=== PATIENT | female | born 1995 | race Caucasian/White ===

== ENCOUNTER 2018-01-03 17:57 | Emergency (ER) | payer BC ==
[2018-01-03 18:25] LABS: #Basophils 0.1 thou/uL (0.0-0.2); #Eosinphils 0.1 thou/uL (0.0-0.7); #Lymphocytes 2.5 thou/uL (1.20-3.40); #Monocytes 0.6 thou/uL (0.11-0.59); #Neutrophils 7.5 thou/uL (1.40-6.50); %Basophils 0.5 % (0.0-1.0); %Lymphocytes 22.8 % (28.0-48.0); %Monocytes 5.6 % (0.0-4.0); %Neutrophils 70.1 % (31.0-61.0); Hemoglobin 13.4 g/dL (12.0-16.0); Mean Corpuscular HGB CONC 34.5 g/dL (32.0-36.0); Mean Corpuscular Hemoglobin 30.6 pg (25.0-35.0); Mean Corpuscular Volume 88.6 fl (77.0-87.0); Mean Platelet Volume 7.2 fL (7.4-10.4); Platelet Count 324 thou/uL (130-400); Red Blood Cell (RBC) Count 4.39 mill/uL (4.00-5.20); White Blood Cell (WBC) Count 10.7 thou/uL (4.8-10.8)
[2018-01-03 18:32] LABS: Bilirubin Negative (Negative); Blood, Urine Negative (Negative); Clarity CLOUDY (Clear); Glucose, Urine (Dipstick) Negative (Negative); Leukocyte Negative (Negative); Nitrite Negative (Negative); Protein, Urine (Dipstick) Negative (Neg-Trace); Specific Gravity, Urine 1.018 (1.002-1.036); Urobilinogen 0.2 mg/dL (0.2-1.0); pH, Urine 7.5 (5.0-9.0)
[2018-01-03 18:45] LABS: ALT (SGPT) 30 U/L (8-55); AST (SGOT) 20 U/L (5-34); Alkaline Phosphatase 67 U/L (40-150); Anion Gap 14 mmol/L (10-20); BUN (Urea Nitrogen) 7 mg/dL (7.0-18.7); Bilirubin, Total 0.4 mg/dL (0.2-1.2); Calc. Creatinine Clearance 0 mL/min (70-130); Calcium 10.1 mg/dL (7.8-10.44); Carbon Dioxide 25 mmol/L (22-29); Chloride 103 mmol/L (98-107); Estimated GFR-MDRD Greater than 90; Globulin 2.9 g/dL (2.4-3.5); Glucose 93 mg/dL (70-105); Potassium 3.8 mmol/L (3.5-5.1); Protein, Total 7.9 g/dL (6.0-8.3); Sodium 138 mmol/L (136-145)
[2018-01-03] MEDS ORDERED: Metoclopramide HCl 10 MG/2 ML VIAL ONE (18:58)
[2018-01-03] MEDS ORDERED: diphenhydrAMINE 50 MG/ML VIAL ONE (18:58)
== END 2018-01-03 21:19 | disposition home or self-care (01) ==
LOC: ERS 17:57
DX: O21.0 Mild hyperemesis gravidarum (principal); O99.341 Other mental disorders complicating pregnancy, first trimester; F32.9 Major depressive disorder, single episode, unspecified; Z3A.08 8 weeks gestation of pregnancy
CPT/HCPCS: 36415; 80053; 81003; 84702; 85025; 96361; 96365; 96375; J1200; J2765

== ENCOUNTER 2018-06-14 20:06 | Day surgery (SDC) | payer BC ==
[2018-06-14 20:47] VITALS: BP 113/70; TEMP 98.5; BMI 26.9
--- NOTE | 2018-06-14 22:16 | PDOC.LDHP ---
Labor and Delivery H&P Chief complaint: decreased movement HPI: EGA at 30 weeks 4 days 22 yo G1 EDU 08/19 with decreased FM, no VB, no LOF. HX sinus infection on ABX ( amoxicillin). Since arrival, now feels FM. Review of Systems: positive for sinus infection, some cough at night Current gestational age (weeks): 30 (4 days) Due date: 08/19/18 Dating criteria: last menstrual period Grav: 1 Para: 0 Current complications: none Abnormal US findings: No Current medications: pre- vitamins Previous surgical history: none Allergies/Adverse Reactions: Allergies Allergy/AdvReac Type Severity Reaction Status Date / Time No Known Drug Allergies Allergy Verified 06/14/18 20:38 - Physical Exam Vital signs reviewed and normal: yes Heart: RRR Lungs: CTAB Abdomen: gravid Extremeties: no edema FHT: category 1 [place] contractions every: no contractions - Assessment Decreased FM at 30 weeks 4 days with a reactive FHRT - Plan Plan: observation in L&D (Kick counts discussed; continue ABX as ordered for sinus; FHTs reviewed with her)
--- NOTE | 2018-06-14 22:23 | PDOC.EVN ---
Event Note - Event Note Event Note: transabdominal "rock" with accel response. reassurance give.
== END 2018-06-14 22:35 | disposition home or self-care (01) ==
LOC: L&D/OP 20:06
PROVIDERS: ATTEND Student in an Organized Health Care Education/Training Program
DX: O36.8130 Decreased fetal movements, third trimester, not applicable or unspecified (principal); O99.513 Diseases of the respiratory system complicating pregnancy, third trimester; J32.9 Chronic sinusitis, unspecified; Z3A.30 30 weeks gestation of pregnancy; Z79.2 Long term (current) use of antibiotics; Z79.899 Other long term (current) drug therapy
CPT/HCPCS: 59025; 99282

== ENCOUNTER 2018-07-20 11:55 | Day surgery (SDC) | payer BC ==
[2018-07-20 12:27] VITALS: BMI 27.8
[2018-07-20 13:42] LABS: #Eosinphils 0.1 thou/uL (0.0-0.7); #Lymphocytes 1.4 thou/uL (1.20-3.40); #Monocytes 0.7 thou/uL (0.11-0.59); #Neutrophils 8.5 thou/uL (1.40-6.50); %Basophils 0.4 % (0.0-1.0); %Eosinophils 0.6 % (0.0-10.0); %Lymphocytes 13.3 % (28.0-48.0); %Monocytes 6.4 % (0.0-4.0); %Neutrophils 79.3 % (31.0-61.0); Hemoglobin 10.5 g/dL (12.0-16.0); Mean Corpuscular HGB CONC 34.8 g/dL (32.0-36.0); Mean Corpuscular Hemoglobin 29.5 pg (25.0-35.0); Mean Corpuscular Volume 84.7 fL (78.0-98.0); Mean Platelet Volume 7.7 fL (7.4-10.4); Platelet Count 313 thou/uL (130-400); RBC Distribution Width 12.6 % (11.5-14.5); Red Blood Cell (RBC) Count 3.55 mill/uL (4.00-5.20); White Blood Cell (WBC) Count 10.7 thou/uL (4.8-10.8)
[2018-07-20 14:06] LABS: ALT (SGPT) 24 U/L (8-55); AST (SGOT) 25 U/L (5-34); Albumin 3.6 g/dL (3.5-5.0); Alkaline Phosphatase 328 U/L (40-150); Anion Gap 15 mmol/L (10-20); BUN (Urea Nitrogen) 9 mg/dL (7.0-18.7); Bilirubin, Total 0.2 mg/dL (0.2-1.2); Calc. Creatinine Clearance 160 mL/min (70-130); Calcium 9.1 mg/dL (7.8-10.44); Carbon Dioxide 21 mmol/L (22-29); Chloride 107 mmol/L (98-107); Estimated GFR-MDRD Greater than 90; Globulin 3.1 g/dL (2.4-3.5); Glucose 79 mg/dL (70-105); Magnesium 2.1 mg/dL (1.7-2.2); Potassium 4.6 mmol/L (3.5-5.1); Protein, Total 6.7 g/dL (6.0-8.3); Sodium 138 mmol/L (136-145)
[2018-07-20 15:10] LABS: Bilirubin Negative (Negative); Blood, Urine Negative (Negative); Clarity CLEAR (Clear); Glucose, Urine (Dipstick) Negative (Negative); Leukocyte Negative (Negative); Nitrite Negative (Negative); Protein, Urine (Dipstick) Negative (Neg-Trace); Specific Gravity, Urine 1.011 (1.002-1.036); Urobilinogen 0.2 mg/dL (0.2-1.0)
[2018-07-20 15:11] LABS: Bacteria/HPF None Seen HPF (None Seen); Hyaline Casts/LPF 0-3 HYALINE CAST LPF (0-3 Hyaline); Pathc Cast-AUWi Flag 0.43 (0-2.49); RBC/HPF 0-3 HPF (0-3); Squamous Epithelial None Seen HPF (0-3); WBC/HPF 0-3 HPF (0-3)
--- NOTE | 2018-07-20 15:19 | HP ---
DATE: 07/20/2018 TIME OF EVALUATION: 1440 until 1454. LOCATION: Labor and Delivery triage in room #7. This is a patient of Dr. Vasquez. CHIEF COMPLAINT: The patient is here for diarrhea for 3 days (loose stool, but not watery). HISTORY OF PRESENT ILLNESS: In brief, this is a 22-year-old female 1, para 0 at 35 -36 weeks with complaint of loose stools for the last 3 days or so. She denies any fevers, blood in the stool, contractions, vaginal bleeding or leakage of fluid. She has good movement. She den ies any sick contacts. She denies any altered diet or strange p.o. intake. She does not have any ab dominal cramps. She states that she was recently checked in the office and she was called [address] Zechariah Vasquez. PAST MEDICAL HISTORY: Noncontributory. PAST SURGICAL HISTORY: None. OB HISTORY: She is a G1, P0. MEDICATIONS: include Diclegis for nausea and her vitamin. SOCIAL HISTORY: Negative for alcohol, tobacco and drug use. PHYSICAL EXAMINATION: VITAL SIGNS: She is afebrile and normotensive. Blood pressures were in the teens over 70s. Clinica lly, she is in no acute distress and she is resting comfortably. ABDOMEN: Soft and nontender and size consistent with dates. On perineal inspection, there is no ruchi dence of vaginal bleeding or ruptured membranes. I performed a cervical examination at the patient's request and found that she was only 1 cm internal os dilation, effacement about 25%, station -2. Sh e is cephalic and there is no evidence of vaginal bleeding or leakage of fluid. On external monitors, heart tones are in the 130s-140s with moderate reactivity. There are no contractions, but there is some uterine irritability on tocodynamometer. Interventions ordered, a CB C and a CMP have been ordered which are both normal. A UA was ordered by Dr. Vasquez and that is dona belcher (clean catch). (She has IV fluids going which was LR and D5 LR for about 2-liter bolus). ASSESSMENT: This is a G1, P0 at 35 weeks with probable gastroenteritis, nonsevere. There is no evid ence of blood in the stool and clinically, she does not appear ill. She is afebrile and can tolerate p.o. PLAN: 1. I discussed these findings with the patient and her mother. 2. No evidence of labor. 3. Although Dr. Vasquez had called her 2 cm, my exam is 1 cm, which may be simple in to observe her variability (not a large discrepancy). 4. I will likely send the patient home after her UA returns. 5. The patient also has a handwritten H&P in the physical chart.
--- NOTE | 2018-07-20 15:44 | PDOC.EVN ---
Event Note - Event Note Event Note: UA clean...ok for outpatient care
== END 2018-07-20 16:11 | disposition home or self-care (01) ==
LOC: L&D/OP 11:55
PROVIDERS: ATTEND Student in an Organized Health Care Education/Training Program
DX: O99.89 Other specified diseases and conditions complicating pregnancy, childbirth and the puerperium (principal); R19.7 Diarrhea, unspecified; Z3A.35 35 weeks gestation of pregnancy; Z79.899 Other long term (current) drug therapy
CPT/HCPCS: 80053; 81001; 83735; 85025; 96360; 96361; 99284

== ENCOUNTER 2018-07-22 16:18 | Day surgery (SDC) | payer BC ==
[2018-07-22 17:00] VITALS: BMI 27.8
[2018-07-22 17:24] VITALS: BP 114/69; TEMP 98.6
[2018-07-22 17:29] LABS: Amnisure Test No Membranes Rupture (No Rupture)
[2018-07-22 17:30] LABS: Amnisure Internal Control QC ACCEPTABLE (ACCEPTABLE)
--- NOTE | 2018-07-23 06:29 | SS ---
DATE OF ADMISSION: 07/22/2018 DATE OF DISCHARGE: 07/22/2018 LABOR AND DELIVERY TRIAGE NOTE REGULAR PHYSICIAN: Alyssa Vasquez MD EVALUATING PHYSICIAN: Florentino Lala MD CHIEF COMPLAINT: Leakage of fluid at home. HISTORY OF PRESENT ILLNESS: Ms. Grier is a 23-year-old white G1, P0 with an estimated date of confinement of 08/19/2018, who presents complaining of 1 episode of suspected leakage of fluid today at home at approximately 2:00 p.m. Since that time, she states that she has had no further leakage. She denies vaginal bleeding or decreased movement. Her care has been with Dr. Vasquez and it has been reportedly uncomplicated. PAST MEDICAL HISTORY: None. PAST SURGICAL HISTORY: None. CURRENT MEDICATIONS: vitamins and Diclegis on a p.r.n. basis. ALLERGIES: NO KNOWN ALLERGIES. SOCIAL HISTORY: Denies tobacco, alcohol, or drug use. FAMILY HISTORY: Unremarkable. REVIEW OF SYSTEMS: Denies nausea, vomiting, fever, chills, vaginal bleeding, or contractions. PHYSICAL EXAMINATION: VITAL SIGNS: Stable. She is afebrile in triage. ABDOMEN: Soft, nontender, and gravid. AmniSure returns without evidence of membrane rupture. PELVIC: Shows the cervix to be 1 cm posterior with the vertex presenting. heart rate tracing is stable and reassuring. No decelerations were seen. No regular uterine contractions were seen. ASSESSMENT: 1. 36-week intrauterine . 2. No evidence of ruptured membranes. PLAN: The patient will be discharged to home. She was given complete labor precautions and voiced understanding of these. She states that she has an appointment with Dr. Vasquez on . Job ID: [id number]
== END 2018-07-22 18:28 | disposition home or self-care (01) ==
LOC: L&D/OP 16:18
PROVIDERS: ATTEND Student in an Organized Health Care Education/Training Program
DX: Z03.71 Encounter for suspected problem with amniotic cavity and membrane ruled out (principal)
CPT/HCPCS: 84112; 99283

== ENCOUNTER 2018-08-13 22:00 | Inpatient (IN) | payer BC ==
[2018-08-13] MEDS: Lactated Ringer's 1,000 ML IV SCH (23:30)
[2018-08-13 23:37] VITALS: BMI 28.3
[2018-08-13] MEDS ORDERED: Lidocaine 1% (PF) 30 ML VIAL SC PRN (23:59)
[2018-08-13] MEDS ORDERED: Acetaminophen 500 MG TAB PO PRN (23:59)
[2018-08-13] MEDS ORDERED: Diphenoxylate HCl/Atropine Tablet PO PRN (23:59)
[2018-08-13] MEDS ORDERED: NS / Oxytocin 40 units/1000ml 1,000 ML IV PRN (23:59)
[2018-08-13] MEDS ORDERED: Zolpidem Tartrate 5 MG TAB PO PRN (23:59)
[2018-08-13] MEDS ORDERED: Carboprost 250 MCG/ML AMP IM PRN (23:59)
[2018-08-13] MEDS ORDERED: Butorphanol Tartrate 1 MG/ML VIAL SLOW IVP PRN (23:59)
[2018-08-13] MEDS ORDERED: Ibuprofen 800 MG TAB PO PRN (23:59)
[2018-08-13] MEDS ORDERED: NS w/ Oxytocin 10 units 500 ML IV SCH (23:59)
[2018-08-13] MEDS ORDERED: Misoprostol 200 MCG TAB PR PRN (23:59)
[2018-08-13] MEDS ORDERED: Methylergonovine 0.2 MG/ML VIAL IM PRN (23:59)
[2018-08-13] MEDS ORDERED: Promethazine HCl 25 MG/ML VIAL IM PRN (23:59)
[2018-08-13] MEDS ORDERED: Ondansetron PF 4 MG/2 ML Vial IVP PRN (23:59)
[2018-08-13] MEDS ORDERED: HYDROcodone/Acetaminophen 5/325 mg Tablet PO PRN (23:59)
[2018-08-14 00:23] LABS: Hemoglobin 10.6 g/dL (12.0-16.0); Mean Corpuscular HGB CONC 33.1 g/dL (32.0-36.0); Mean Corpuscular Hemoglobin 27.4 pg (27.0-31.0); Mean Corpuscular Volume 82.6 fL (78.0-98.0); Mean Platelet Volume 8.3 fL (7.4-10.4); Platelet Count 289 thou/uL (130-400); RBC Distribution Width 13.4 % (11.5-14.5); Red Blood Cell (RBC) Count 3.87 mill/uL (4.20-5.40); White Blood Cell (WBC) Count 11.4 thou/uL (4.8-10.8)
[2018-08-14 00:55] LABS: HBSAg Index 0.33 S/CO (0-0.99); Hep B Surf Ag Non-Reactive S/CO (NonReactive); Syphilis Antibody Nonreactive (Nonreactive); Syphilis Antibody Index 0.05 S/CO (<1.00 Non-Reactive)
[2018-08-14] MEDS: Misoprostol 100 MCG TAB VAG SCH ×2 (01:00→05:03)
[2018-08-14] MEDS: Lactated Ringer's 1,000 ML IV SCH ×3 (05:08→11:09)
--- NOTE | 2018-08-14 08:10 | PDOC.LDHP ---
Labor and Delivery H&P Chief complaint: scheduled induction HPI: 23yo at 39w2d by LMP for elective IOL, s/p cytotec 2 doses overnight, some mildly painful contractions. No VB LOF. Current gestational age (weeks): 39 Due date: 08/19/18 Dating criteria: last menstrual period Grav: 1 Para: 0 Current complications: other (mild anemia) Abnormal US findings: No Past Medical History: SMA carrier, FOB negative carrier Current medications: pre-luis vitamins, iron Previous surgical history: none Allergies/Adverse Reactions: Allergies Allergy/AdvReac Type Severity Reaction Status Date / Time No Known Drug Allergies Allergy Verified 08/13/18 23:38 Social history: drug use (THC use throughout , all drug screens are positive up until this admit.) - Physical Exam Vital signs reviewed and normal: yes General: NAD Heart: RRR Lungs: CTAB Abdomen: gravid Extremeties: no edema FHT: category 1 [place] contractions every: 4-6min - Vaginal Exam cm dilated: 4 Effacement: 50% Station: -1 - OB Labs Blood type: O RH: positive Antibody Screen: negative HIV: negative RPR: negative HEPSAg: negative 1 hour GCT: negative GBS: negative Urine drug screen: negative Rubella: immune - Assessment L&D Assessment: elective induction at term - Plan Plan: admit to L&D, labor augmentation if indicated, informed consent obtained, anesthesia consult for pain management
[2018-08-14] MEDS ORDERED: Fentanyl 4 mcg/Bup 0.1% Cadd 100 ML ONE (09:03)
[2018-08-14] MEDS ORDERED: Lidocaine 1.5%/Epinephrine 1:200,000 5 ML AMPUL IJ ONE (09:40)
[2018-08-14] MEDS ORDERED: Fentanyl 4 mcg/Bupivacaine 0.1% Cassette 100 ML EPIDURAL SCH (10:15)
[2018-08-14] MEDS ORDERED: Lactated Ringer's 500 ML IV PRN (10:15)
[2018-08-14] MEDS ORDERED: diphenhydrAMINE 50 MG/ML VIAL IVP PRN (10:15)
[2018-08-14] MEDS ORDERED: Acetaminophen 325 MG TAB PO PRN (10:15)
[2018-08-14] MEDS ORDERED: Communication Order-Pharmacy FS SCH (10:15)
[2018-08-14] MEDS ORDERED: Promethazine HCl 25 MG/ML VIAL IM PRN (10:15)
[2018-08-14] MEDS ORDERED: Eucerin (Mineral Oil/Petrolatum,White) 30 gm Jar TOP PRN (10:15)
[2018-08-14] MEDS ORDERED: Ondansetron PF 4 MG/2 ML Vial IVP PRN ×2 (10:15→20:01)
[2018-08-14] MEDS ORDERED: Naloxone HCl 0.4 mg/ml Vial IVP PRN ×2 (10:15)
[2018-08-14] MEDS ORDERED: ePHEDrine/0.9% NaCl/PF SYRINGE 50 mg/10 ml SLOW IVP PRN (10:15)
--- NOTE | 2018-08-14 13:22 | PDOC.LDPN ---
Labor & Delivery Progress Note - Subjective Subjective: comfortable - Objective Vital signs reviewed and normal: yes General: NAD Uterine fundus: non tender Dilation: 7 Effacement: 90% Station: 0 FHT: category 1, early decelerations [place] contractions every: q2min Plan: continue plan of care
--- NOTE | 2018-08-14 17:01 | PDOC.OPDEL ---
OB Operative/Delivery Note Delivery Dr/Surgeon: Pedro Assist: n/a Pre-Delivery Diagnosis: elective induction Procedure/Post Delivery Dx: spontaneous vaginal delivery Weeks gestation: 39 Anesthesia: epidural - Findings A Sex: male - 1 min: 8 - 5 min: 9 - Additional Findings/Plan Placenta delivered: spontaneous Repaired Obstetrical Laceration: none Estimated blood loss: 100cc qbl pending Compilations/Other Findings: NC x 1 loose, delivered through, terminal mec, no dystocia Post delivery plan: routine recovery
[2018-08-14] MEDS ORDERED: NS / Oxytocin 40 units/1000ml 1,000 ML ONE (18:57)
[2018-08-14] MEDS ORDERED: Preparation H Ointment 28 GM TUBE PR PRN (20:01)
[2018-08-14] MEDS ORDERED: Benzocaine/Menthol 20-0.5% 60 ML CAN TOP PRN (20:01)
[2018-08-14] MEDS ORDERED: Bisacodyl 10 MG SUPP PR PRN (20:01)
[2018-08-14] MEDS ORDERED: Milk Of Magnesia 30 ML UDCUP PO PRN (20:01)
[2018-08-14] MEDS ORDERED: Lanolin Ointment 7 GM TUBE TOP PRN (20:01)
[2018-08-14] MEDS ORDERED: Adacel (T-DAP) 0.5 ML SYRINGE IM ONE (20:01)
[2018-08-14] MEDS ORDERED: diphenhydrAMINE 25 MG CAP PO PRN (20:01)
[2018-08-14] MEDS ORDERED: HYDROcodone/Acetaminophen 5/325 mg Tablet PO PRN (20:01)
[2018-08-14] MEDS ORDERED: NS / Oxytocin 40 units/1000ml 1,000 ML IV SCH (20:01)
[2018-08-14] MEDS: Docusate Calcium (SURFAK) 240 MG CAP PO SCH (22:23)
[2018-08-15] MEDS: HYDROcodone/Acetaminophen 5/325 mg Tablet PO PRN ×4 (00:34→21:12)
[2018-08-15] MEDS: Ibuprofen 800 MG TAB PO SCH ×4 (02:00→21:13)
[2018-08-15] MEDS: Ferrous Sulfate 325 MG TAB PO SCH ×2 (07:49→16:30)
[2018-08-15] MEDS: Misoprostol 100 MCG TAB VAG SCH (07:50)
--- NOTE | 2018-08-15 07:56 | PDOC.PP ---
Post Progress Note Post Day #: 1 PO intake tolerated: yes Flatus: yes Ambulation: yes Vital Signs (12 hours) Temp Pulse Resp BP BP Pulse Ox 08/15/18 03:53 97.8 F 100 20 118/74 08/15/18 00:15 98.0 F 77 18 137/76 08/14/18 21:25 98.4 F 86 18 143/74 H 97 Weight Weight 150 lb - Physical Examination General: NAD Cardiovascular: RRR Respiratory: non-labored breathing Abdominal: no distention, appropriately TTP Fundus firm & at: umb-2 Skin: no rash Neurological: no gross focal deficits Psychiatric: normal affect Result Diagrams: 08/13/18 23:50 Additional Labs: Post Labs Blood Type O POSITIVE 08/13/18 23:50 Hep Bs Antigen Non-Reactive S/CO (NonReactive) 08/13/18 23:50 - Assessment/Plan PPD1 s/p TSVD VSSAF Doing well, lochia < menses Bottlefeeding Rh pos Rimm Cont PP care, home tomorrow.
[2018-08-15] MEDS: Docusate Calcium (SURFAK) 240 MG CAP PO SCH ×2 (09:05→21:13)
[2018-08-15] MEDS: Prenatal Vitamin 1 TAB PO SCH (09:05)
[2018-08-15] MEDS ORDERED: Lidocaine 2% MPF 10 ML AMP (For Epidural Use) ONE (11:11)
[2018-08-15] MEDS ORDERED: Ondansetron ODT 4 MG TAB PO PRN (14:50)
[2018-08-16] MEDS: HYDROcodone/Acetaminophen 5/325 mg Tablet PO PRN ×2 (01:35→08:34)
--- NOTE | 2018-08-16 05:15 | PDOC.PP ---
Post Progress Note Post Day #: 2 Subjective: Doing well, she is OK with dsc today. No new concerns raised PO intake tolerated: yes Flatus: yes Ambulation: yes Vital Signs (12 hours) Temp Pulse Resp BP Pulse Ox 08/15/18 20:22 98.1 F 80 16 119/72 97 Weight Weight 150 lb Vitals reviewed for last 24 hours - Physical Examination General: NAD Cardiovascular: no m/r/g Respiratory: clear to auscultation bilaterally Abdominal: + bowel sounds Extremities: negative homans (B) Neurological: no gross focal deficits Psychiatric: A&Ox3, normal affect Result Diagrams: 08/13/18 23:50 Additional Labs: Post Labs Blood Type O POSITIVE 08/13/18 23:50 Hep Bs Antigen Non-Reactive S/CO (NonReactive) 08/13/18 23:50 (1) Vaginal delivery Code(s): O80 - ENCOUNTER FOR FULL-TERM UNCOMPLICATED DELIVERY Status: Acute - Assessment/Plan PPD2, doing well. Vitals reviewed. Vitals reviewed, one BP of 143/74 noted on but other BPs are wnl. OK for dsch today. OB Summary completed in paper chart Final DX: vaginal Delivery; routine PP care, primigravida
[2018-08-16] MEDS: Ibuprofen 800 MG TAB PO SCH (06:35)
[2018-08-16] MEDS: Ferrous Sulfate 325 MG TAB PO SCH (08:11)
[2018-08-16] MEDS: Prenatal Vitamin 1 TAB PO SCH (08:33)
[2018-08-16] MEDS: Docusate Calcium (SURFAK) 240 MG CAP PO SCH (08:33)
[2018-08-16 09:35] VITALS: BP 112/55; TEMP 97.8
== END 2018-08-16 12:35 | disposition home or self-care (01) | DRG 807 ==
LOC: L&D 22:58 → 3SW 08-14 21:27
PROVIDERS: ADMIT Student in an Organized Health Care Education/Training Program; ATTEND Student in an Organized Health Care Education/Training Program
PROC: 10E0XZZ Delivery of Products of Conception, External Approach (ICD-10-PCS; principal; 2018-08-14)
PROC: 10907ZC Drainage of Amniotic Fluid, Therapeutic from Products of Conception, Via Natural or Artificial Opening (ICD-10-PCS; 2018-08-14)
DX: O99.02 Anemia complicating childbirth (principal); Z37.0 Single live birth; Z3A.39 39 weeks gestation of pregnancy; Z79.899 Other long term (current) drug therapy; O69.81X0 Labor and delivery complicated by cord around neck, without compression, not applicable or unspecified; O76 Abnormality in fetal heart rate and rhythm complicating labor and delivery
CPT/HCPCS: 51702; 85027; 86780; 86850; 86900; 86901; 87340; 90715; J2001; J3490; Q0162

== ENCOUNTER 2018-09-06 23:08 | Emergency (ER) | payer BC ==
[2018-09-07 00:13] LABS: #Eosinphils 0.1 thou/uL (0.0-0.7); #Lymphocytes 1.9 thou/uL (1.20-3.40); #Monocytes 0.6 thou/uL (0.11-0.59); #Neutrophils 8.7 thou/uL (1.40-6.50); %Basophils 0.3 % (0.0-1.0); %Eosinophils 0.7 % (0.0-10.0); %Lymphocytes 17.1 % (21.0-51.0); %Monocytes 5.6 % (0.0-10.0); %Neutrophils 76.4 % (42.0-75.0); Hemoglobin 11.8 g/dL (12.0-16.0); Mean Corpuscular HGB CONC 32.8 g/dL (32.0-36.0); Mean Corpuscular Hemoglobin 26.7 pg (27.0-31.0); Mean Corpuscular Volume 81.5 fL (78.0-98.0); Mean Platelet Volume 7.1 fL (7.4-10.4); Platelet Count 402 thou/uL (130-400); RBC Distribution Width 13.7 % (11.5-14.5); White Blood Cell (WBC) Count 11.3 thou/uL (4.8-10.8)
[2018-09-07 00:36] LABS: ALT (SGPT) 29 U/L (8-55); AST (SGOT) 22 U/L (5-34); Albumin 4.6 g/dL (3.5-5.0); Alkaline Phosphatase 145 U/L (40-150); Anion Gap 18 mmol/L (10-20); BUN (Urea Nitrogen) 13 mg/dL (7.0-18.7); Bilirubin, Total 0.3 mg/dL (0.2-1.2); Calc. Creatinine Clearance 0 mL/min (70-130); Calcium 9.6 mg/dL (7.8-10.44); Carbon Dioxide 22 mmol/L (22-29); Chloride 105 mmol/L (98-107); Estimated GFR-MDRD Greater than 90; Globulin 2.9 g/dL (2.4-3.5); Glucose 114 mg/dL (70-105); Lipase 18 U/L (8-78); Potassium 3.5 mmol/L (3.5-5.1); Protein, Total 7.5 g/dL (6.0-8.3); Sodium 141 mmol/L (136-145)
[2018-09-07 03:34] LABS: Bilirubin Negative (Negative); Blood, Urine Negative (Negative); Clarity CLEAR (Clear); Glucose, Urine (Dipstick) Negative (Negative); Leukocyte Negative (Negative); Nitrite Negative (Negative); Protein, Urine (Dipstick) Negative (Neg-Trace); Specific Gravity, Urine 1.021 (1.002-1.036); Urobilinogen 0.2 mg/dL (0.2-1.0)
--- NOTE | 2018-09-07 16:47 | ULT ---
PRELIMINARY REPORT/[facility]/EMERGENTY AFTER-HOURS PROCEDURE US Abdomen Limited, Right Upper Quadrant EXAM DATE/TIME: 09/07/2018 2:41 AM CLINICAL HISTORY: 23 years old, female; Pain; Other: Ml to ruq pain TECHNIQUE: Real-time ultrasound of the abdomen with image documentation. Examination was focused on the right up per quadrant. COMPARISON: No relevant prior studies available. FINDINGS: Liver: Normal. No masses. Gallbladder: Cholelithiasis. Contracted gallbladder. Common bile duct: Normal. No stones. No dilation. Pancreas: Visualized pancreas is unremarkable. Right kidney: Normal. No mass. No hydronephrosis. IMPRESSION: Cholelithiasis. Contracted gallbladder. No cholecystitis. Thank you for allowing us to participate in the care of your patient. Dictated and Authenticated by: Randy Ariza MD 09/07/2018 3:23 AM Central Time ([place] & [place]) FINAL REPORT RIGHT UPPER QUADRANT ULTRASOUND: Cholelithiasis and a contracted gallbladder is noted. I am in agreement with the preliminary report. POS: HARMONY
== END 2018-09-07 03:46 | disposition home or self-care (01) ==
LOC: ERS 23:08
DX: O99.63 Diseases of the digestive system complicating the puerperium (principal); K80.20 Calculus of gallbladder without cholecystitis without obstruction; O99.345 Other mental disorders complicating the puerperium; F53.0 Postpartum depression
CPT/HCPCS: 36415; 76705; 80053; 81003; 83690; 85025; 93005

== ENCOUNTER 2018-09-10 10:46 | Outpatient (CLI) | payer BC ==
[2018-09-10 12:19] LABS: #Basophils 0.1 thou/uL (0.0-0.2); #Eosinphils 0.1 thou/uL (0.0-0.7); #Monocytes 0.4 thou/uL (0.11-0.59); #Neutrophils 3.9 thou/uL (1.40-6.50); %Basophils 0.9 % (0.0-1.0); %Eosinophils 1.5 % (0.0-10.0); %Lymphocytes 31.3 % (21.0-51.0); %Monocytes 6.3 % (0.0-10.0); Hemoglobin 11.8 g/dL (12.0-16.0); Mean Corpuscular HGB CONC 31.2 g/dL (32.0-36.0); Mean Corpuscular Hemoglobin 25.8 pg (27.0-31.0); Mean Corpuscular Volume 82.6 fL (78.0-98.0); Mean Platelet Volume 7.4 fL (7.4-10.4); Platelet Count 352 thou/uL (130-400); RBC Distribution Width 13.8 % (11.5-14.5); Red Blood Cell (RBC) Count 4.57 mill/uL (4.20-5.40); White Blood Cell (WBC) Count 6.5 thou/uL (4.8-10.8)
[2018-09-10 12:45] LABS: BHCG - Serum Negative (NEGATIVE); Pregs Control Background? CLEAR/WHITE (CLR/WHITE); Pregs Control Bar Appear? YES (CONTROL BAR)
[2018-09-10 12:48] LABS: ALT (SGPT) 21 U/L (8-55); AST (SGOT) 15 U/L (5-34); Albumin 4.5 g/dL (3.5-5.0); Alkaline Phosphatase 121 U/L (40-150); Anion Gap 14 mmol/L (10-20); BUN (Urea Nitrogen) 10 mg/dL (7.0-18.7); Bilirubin, Direct 0.2 mg/dL (0.1-0.3); Bilirubin, Total 0.4 mg/dL (0.2-1.2); Calc. Creatinine Clearance 0 mL/min (70-130); Calcium 9.5 mg/dL (7.8-10.44); Carbon Dioxide 25 mmol/L (22-29); Chloride 107 mmol/L (98-107); Estimated GFR-MDRD Greater than 90; Glucose 79 mg/dL (70-105); Potassium 3.8 mmol/L (3.5-5.1); Protein, Total 7.3 g/dL (6.0-8.3); Sodium 142 mmol/L (136-145)
== END 2018-09-10 10:47 | disposition home or self-care (01) ==
LOC: LABBT 10:46
PROVIDERS: ATTEND Surgery
DX: Z01.812 Encounter for preprocedural laboratory examination (principal); K80.20 Calculus of gallbladder without cholecystitis without obstruction
CPT/HCPCS: 80048; 80076; 84703; 85025

== ENCOUNTER → 2018-09-18 | Day surgery (SDC) | payer BC ==
[2018-09-10 10:58] VITALS: BMI 25.3
[~2018-09-18] MED LIST: Bupivacaine HCl 0.25%/Epi 0.0005/PF 10 ML VIAL FS ONE; CEFAZOLIN 2 GM/50 ML BAG ONE; Dexamethasone 20 MG/5 ML VIAL ONE; Fentanyl 100 MCG/2 ML VIAL ONE; Fentanyl 250 MCG/5 ML VIAL ONE; HYDROcodone/Acetaminophen 5/325 mg Tablet ONE; Ondansetron PF 4 MG/2 ML Vial ONE; PHENYLEPHRINE-NS 100 MCG/ML 10 ML SYRINGE ONE; PROPOFOL 200 MG/20 ML VIAL ONE; Rocuronium Bromide 10 MG/ML (10ML VIAL) ONE
--- NOTE | 2018-09-18 15:57 | OP ---
DATE OF PROCEDURE: 09/18/2018 PREOPERATIVE DIAGNOSIS: Symptomatic gallstones. POSTOPERATIVE DIAGNOSIS: Symptomatic gallstones. PROCEDURE PERFORMED: Laparoscopic cholecystectomy. ANESTHESIA: General. ESTIMATED BLOOD LOSS: Minimal. COMPLICATIONS: None. SPECIMEN: Gallbladder. FINDINGS: Chronic cholecystitis. DESCRIPTION OF PROCEDURE: The patient was taken to the operating room and laid supine on the operating room table. After general anesthetic was obtained, the abdomen was prepped and draped in a sterile fashion. A curved incision was made below the umbilicus. Cautery was used to dissect down to the umbilical fascia. Umbilical fascia was incised and held up using a Anca. The abdominal cavity was entered using a Kyung clamp. Holding stitch of Vicryl was placed on each side of the fascia. Simmons trocar was placed. High-flow pneumoperitoneum was obtained. An upper midline 5 mm port and 2 right upper quadrant 5 mm ports were placed under direct camera visualization. The gallbladder was retracted from the gallbladder fossa. The peritoneum of the gallbladder was opened anteriorly and posteriorly. The critical view triangle was seen showing only the cystic duct and cystic artery branching from medial to lateral. There were no other branching structures. Two clips were placed proximally on the cystic duct and one laterally. It was cut using laparoscopic scissors. The cystic artery was taken in the same way. Electrocautery was then used to dissect the gallbladder out of the gallbladder fossa. The gallbladder was placed in an Endo catch bag and brought out through the Simmons. There was no bleeding or bile in the liver bed. The cystic duct stump and cystic artery stump were intact, without evidence of extravasation or bleeding. All port sites were infiltrated using local anesthesia. All ports were removed under camera visualization. Pneumoperitoneum was let down. The Vicryl was used to close the fascial defect below the umbilicus. All incisions were irrigated and closed using 4-0 Monocryl and Dermabond. The patient was en route to Recovery in stable condition. All instrument counts, needle counts and lap counts were correct. Job ID: [id number]
== END ==
LOC: SDC 08:54
PROVIDERS: ATTEND Surgery
PROC: 0FT44ZZ Resection of Gallbladder, Percutaneous Endoscopic Approach (ICD-10-PCS; principal; 2018-09-18)
DX: K80.10 Calculus of gallbladder with chronic cholecystitis without obstruction (principal)
CPT/HCPCS: 88304; J1100; J2405; J2704; J3010

== ENCOUNTER 2020-01-10 10:13 | Emergency (ER) | payer BC ==
[2020-01-10 11:20] LABS: #Monocytes 0.2 thou/uL (0.11-0.59); #Neutrophils 10.4 thou/uL (1.40-6.50); %Basophils 0.1 % (0.0-1.0); %Eosinophils 0.2 % (0.0-10.0); %Lymphocytes 8.8 % (21.0-51.0); %Monocytes 1.9 % (0.0-10.0); Hemoglobin 13.7 g/dL (12.0-16.0); Mean Corpuscular HGB CONC 32.8 g/dL (32.0-36.0); Mean Corpuscular Hemoglobin 29.3 pg (27.0-31.0); Mean Corpuscular Volume 89.3 fL (78.0-98.0); Mean Platelet Volume 7.4 fL (7.4-10.4); Platelet Count 372 thou/uL (130-400); Red Blood Cell (RBC) Count 4.67 mill/uL (4.20-5.40); White Blood Cell (WBC) Count 11.6 thou/uL (4.8-10.8)
--- NOTE | 2020-01-10 11:21 | CT ---
CT BRAIN NONCONTRAST: DATE: 01/10/2020 HISTORY: 24-year-old female with headache and epistaxis FINDINGS: There is no evidence of acute intra-axial or extra-axial hemorrhage. There is no midline shift or any other mass effect. There is no extra-axial fluid collection. The ventricles are normal in size and configuration. The tympanomastoid cavities, and the upper portions of the paranasal sinuses included in these images, are grossly clear. Calvarium is intact. IMPRESSION: Normal.
--- NOTE | 2020-01-10 11:29 | CT ---
CT maxillofacial noncontrast: DATE: 01/10/2020 HISTORY: 24-year-old female with "sinus infection" and at the staxis. Headache. FINDINGS: There is a tiny mucus retention cyst at the lower medial portion of the right maxillary sinus. Otherw ise, the rest of the right maxillary sinus, left maxillary sinus, bilateral ethmoid air cells, sphenoid sinus, and frontal sinuses, are clear. Frontal sinuses are hypoplastic, especially the right . Frontal recesses, bilateral ostiomeatal units, and bilateral sphenoethmoidal recesses, are also clear. No destructive osseous lesion. Bilateral tympanomastoid cavities are grossly clear. Orbits are clear. Right rodolfo bullosa. Nasal septal deviation to the left superiorly and to the right inferiorly. Otherwise, middle meatus and inferior meatus are clear bilaterally. IMPRESSION: Other than a tiny mucus retention cyst in the right maxillary antrum, the paranasal sinuses are clear .
[2020-01-10 11:42] LABS: ALT (SGPT) 30 U/L (8-55); AST (SGOT) 18 U/L (5-34); Albumin 4.7 g/dL (3.5-5.0); Alkaline Phosphatase 93 U/L (40-110); Anion Gap 12 mmol/L (10-20); BUN (Urea Nitrogen) 8 mg/dL (7.0-18.7); Bilirubin, Total 0.3 mg/dL (0.2-1.2); Calc. Creatinine Clearance 0 mL/min (70-130); Calcium 9.8 mg/dL (7.8-10.44); Carbon Dioxide 24 mmol/L (22-29); Chloride 105 mmol/L (98-107); Estimated GFR-MDRD 90; Globulin 3.3 g/dL (2.4-3.5); Glucose 91 mg/dL (70-105); Potassium 4.2 mmol/L (3.5-5.1); Sodium 137 mmol/L (136-145)
== END 2020-01-10 12:22 | disposition home or self-care (01) ==
LOC: ERS 10:13
DX: J01.90 Acute sinusitis, unspecified (principal); F32.9 Major depressive disorder, single episode, unspecified; Z79.899 Other long term (current) drug therapy
CPT/HCPCS: 36415; 70450; 70486; 80053; 85025